=== PATIENT | female | born 1995 | race Caucasian/White ===

== ENCOUNTER 2024-12-19 14:45 | Outpatient (RCR) | payer BC, SELFPAY ==
--- NOTE | 2024-11-19 09:11 | PTOPEVAL1 ---
Assessment and note entered by Kayla Porter, PT Evaluation Information Assessment Status Evaluation Diagnosis R42 ICD-10 Condition Codes (PT) Dizziness and Giddiness R42 Subjective Information Pt c/o dizziness and lightheadedness that started when she was , it went away after delivery but after 8 months post , it has recently occurred again. Worse with rapidly turning head or rapidly looking up from bending down. Sometimes rolling in bed going to the R side would also trigger the slight dizziness or spinning sensation. Denies any nausea or vomiting, no falls in the past and no feeling of passing out. However pt is worried about the dizzy spells especially when she is holding her baby. Does not happen every time, random occurrence; last only a few seconds. Stopping and staying still would relieve the symptoms. Assessment PT Clinical Summary Pt presents to therapy for evaluation of dizziness occurring with positional changes. Demos mild tightness and mobility limitations to cervical area, [place]-Hallpike did not elicit nystagmus but pt reported light-headedness, symptoms also provoked during rapid head movement to the R side. She scored 18 on Dizziness Handicap Inventory and noted postural sway with balance tests when vision is eliminated. Pt also reports of fullness and occasional ringing of R ear. Her symptoms impact safety with performing her duties at home and at work. Pt will greatly benefit from Vestibular Rehab to address deficits and improve QOL. Plan of Care Interventions Manual Therapy,Mechanical Traction,Neuro Re- education,Patient/Caregiver Education,Therapeutic Activities,Therapeutic Exercise,Ultrasound,Other Other Interventions Vestibular Rehab PT Services Indicated Yes Treatment Frequency and 1-2x/wk x 6 visits Duration These treatments will address the objective and functional deficits as defined above. The patient will be advanced safely and appropriately in order for the patient to progress towards his/her prior level of function. Additional exercises will be introduced and as well as a comprehensive home exercise program upon discharge, if needed, ?to ensure carryover of functional gains achieved in the clinic. This treatment plan has been reviewed and agreement upon by the patient.
--- NOTE | 2024-12-21 11:01 | PTOPDC ---
Assessment and note entered by Kayla Porter, PT Discharge Information Assessment Status Discharge Diagnosis R42 ICD-10 Condition Codes (PT) Dizziness and Giddiness R42 Subjective Information Pt reports she has not been experiencing any of the dizziness episodes this week and she has been feeling much better than when she first started therapy. Reported Pain Level Pain Score 0: Self Report Assessment PT Clinical Summary Pt demo good progress with canalith repositioning maneuver and skilled PT treatment to cervical muscle tightness. She presents with complete resolution of dizziness and lightheadedness symptoms. Patient is agreeable to DC today and to continue maintenance HEPs at this time. Plan of Care PT Services Indicated No
== END 2024-12-23 09:51 | disposition home or self-care (01) ==
LOC: ANHHIPT 14:45
PROVIDERS: PCP Physician Assistant Medical; Visit Provider Physician Assistant Medical
DX: R42 Dizziness and giddiness (principal)
CPT/HCPCS: 95992; 97035; 97110; 97140; 97161; 97750